=== PATIENT | male | born 1950 | race Caucasian/White ===

== ENCOUNTER 2017-09-21 19:24 | Emergency (ER) | payer OTHER ==
[~2017-09-21] VITALS: Ht 182.9 cm; Wt 122.5 kg
[2017-09-21] MEDS ORDERED: SODIUM CHLORIDE 0.9% IV ONE (20:30)
[2017-09-21] MEDS ORDERED: PHENYLEPHRINE IV ONE (20:30)
== END 2017-09-21 23:47 | disposition home or self-care (01) ==
LOC: ER 19:24
DX: N48.33 Priapism, drug-induced (principal); I10 Essential (primary) hypertension; Z85.46 Personal history of malignant neoplasm of prostate
CPT/HCPCS: 99282; J2370